=== PATIENT | female | born 1985 | race Caucasian/White ===

== ENCOUNTER 2017-06-07 | Emergency (ER) | payer OTHER ==
--- NOTE | 2017-06-07 15:07 | ER ---
Nurse's Notes [facility] Name: Verna Schwartz Age: 31 yrs Sex: Female : 1985 Arrival Date: 06/07/2017 Time: 12:28 Bed 25 Private MD: Diagnosis: Lesion of ulnar nerve;Myelopathy in diseases classified elsewhere;Radiculopathy, cervical region Presentation: 06/07 12:32 Presenting complaint: Patient states: Reports numbness to left arm for 1 week. Patient aj reports symptoms started with pain in shoulder and back. Transition of care: patient was not received from another setting of care. Onset of symptoms was May 31, 2017. Care prior to arrival: None. 12:32 Method Of Arrival: Ambulatory aj 12:32 Acuity: GISEL 4 aj Triage Assessment: 12:34 General: Appears in no apparent distress. comfortable, Behavior is calm, cooperative, aj appropriate for age. Pain: Complains of pain in left scapular area. Neuro: Level of Consciousness is awake, alert, obeys commands, Oriented to person, place, time, situation. Respiratory: Airway is patent Respiratory effort is even, unlabored, Respiratory pattern is regular, symmetrical. Derm: Skin is intact, is healthy with good turgor, Skin is pink, warm \T\ dry. normal. Musculoskeletal: Reports numbness in left arm. 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 [Active]; - PMHx: 12:34 Anxiety; Arthritis; Bipolar disorder; Degenerative disc disease; DENTURES; Depression; aj Fibromyalgia; GERD; Rheumatoid Arthritis; - PSHx: 12:34 DENTAL SURG; aj - Immunization history:: Adult Immunizations up to date. - Social history:: Smoking status: Patient uses tobacco products, smokes one-half pack cigarettes per day. Screenin:30 Abuse screen: Denies threats or abuse. Denies injuries from another. Nutritional kr2 screening: No deficits noted. Tuberculosis screening: No symptoms or risk factors identified. Fall Risk None identified. Assessment: 13:10 General: Appears in no apparent distress. comfortable, unkempt, well developed, well kr2 nourished, Behavior is calm, cooperative, appropriate for age. Pain: Complains of pain in left arm and left scapular area Pain currently is 7 out of 10 on a pain scale. Quality of pain is described as burning, aching, Pain began gradually, Is continuous, Alleviated by nothing. Aggravated by increased activity, repositioning. 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 Gait is steady, Speech is normal, Facial symmetry appears normal, Pupils are PERRLA, paresthesias in left arm. Cardiovascular: Heart tones S1 S2 present Capillary refill < 3 seconds in bilateral fingers Patient's skin is warm and dry. Respiratory: Airway is patent Respiratory effort is even, unlabored, Respiratory pattern is regular, symmetrical. GI: Abdomen is flat, non-distended. : No signs and/or symptoms were reported regarding the genitourinary system. Denies burning with urination. EENT: Oral mucosa is moist. Derm: Skin is intact, is healthy with good turgor, Skin is pink, warm \T\ dry. Musculoskeletal: Reports weakness in left hand numbness in palmar aspect of left forearm. 14:10 Reassessment: Patient appears in no apparent distress at this time. Patient and/or kr2 family updated on plan of care and expected duration. Pain level reassessed. Patient is alert, oriented x 3, equal unlabored respirations, skin warm/dry/pink. 15:30 Reassessment: Patient appears in no apparent distress at this time. Patient and/or kr2 family updated on plan of care and expected duration. Pain level reassessed. Patient is alert, oriented x 3, equal unlabored respirations, skin warm/dry/pink. Patient states she is comfortable at this time. 16:30 Reassessment: No changes from previously documented assessment. kr2 17:30 Reassessment: No changes from previously documented assessment. Report called to kr2 receiving nurse Connor, at [facility] in the [facility]. Vital Signs: 12:34 BP 114 / 81; Pulse 89; Resp 16; Temp 99.2; Pulse Ox 98% on R/A; Weight 69.4 kg; Height aj 5 ft. 8 in. (172.72 cm); Pain 5/10; 14:00 BP 110 / 76; Pulse 78; Resp 15; Pulse Ox 99% on R/A; kr2 15:39 BP 108 / 76; Pulse 74; Resp 14; Pulse Ox 96% on R/A; kr2 17:00 BP 110 / 82; Pulse 78; Resp 16; Pulse Ox 100% on R/A; kr2 12:34 Body Mass Index 23.26 (69.40 kg, 172.72 cm) ED Course: 12:28 Patient arrived in ED. as 12:33 Triage completed. 12:34 Arm band placed on right wrist. Patient placed in waiting room, Patient notified of wait time. 13:05 Fidel Alanis MD is Attending Physician. 13:30 Patient has correct armband on for positive identification. Bed in low position. Call kr2 light in reach. Side rails up X 1. Pulse ox on. NIBP on. Door closed. Warm blanket given. Head of bed elevated. 15:05 Gt Pollock MD is Referral Physician. 15:07 Sami Hollins MD is Referral Physician. 15:26 Dari Treviño, GAIL is Primary Nurse. kr2 17:45 No provider procedures requiring assistance completed. Patient did not have IV access kr2 during this emergency room visit. Administered Medications: No medications were administered Outcome: 15:06 Discharge ordered by . 16:00 ER care complete, transfer ordered by . 17:45 Transferred by ground EMS to [facility], Transfer form completed. kr2 17:45 Transferred 17:45 Condition: stable 17:45 Instructed on the need for transfer, Demonstrated understanding of instructions. 17:55 Patient left the ED. kr2 Signatures: Chelsy Mckay RN RN Makenzie Peña as Fidel Alanis MD MD Dari Treviño, GAIL RN kr2 Corrections: (The following items were deleted from the chart) [id number] 01:20 04/03 17:30 Reassessment: No changes from previously documented assessment. kr2 kr2
--- NOTE | 2017-06-07 15:07 | EDPHYS ---
Physician Documentation [facility] Name: Verna Schwartz Age: 31 yrs Sex: Female : 1985 Arrival Date: 06/07/2017 Time: 12:28 Bed 25 Private MD: ED Physician Fidel Alanis HPI: 06/07 14:55 This 31 yrs old Female presents to ER via Ambulatory with complaints of gs Numbness Of Arm. 14:55 The patient presents to the emergency department with paresthesias of the left upper gs extremity, that is moderate. Onset: The symptoms/episode began/occurred 1 week(s) ago. Associated signs and symptoms: Pertinent positives: paresthesias, Pertinent negatives: altered mental status. Severity of symptoms: At their worst the symptoms were moderate in the emergency department the symptoms are unchanged. 15:01 Current symptoms: paralysis or paresis, that is mild. The patient has not experienced gs similar symptoms in the past. 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 [Active]; - PMHx: 12:34 Anxiety; Arthritis; Bipolar disorder; Degenerative disc disease; DENTURES; Depression; aj Fibromyalgia; GERD; Rheumatoid Arthritis; - PSHx: 12:34 DENTAL SURG; aj - Immunization history:: Adult Immunizations up to date. - Social history:: Smoking status: Patient uses tobacco products, smokes one-half pack cigarettes per day. ROS: 15:01 All other systems are negative. gs Exam: 15:01 Head/Face: Normocephalic, atraumatic. Eyes: Pupils equal round and reactive to light, gs extra-ocular motions intact. Lids and lashes normal. Conjunctiva and sclera are non-icteric and not injected. Cornea within normal limits. Periorbital areas with no swelling, redness, or edema. ENT: Nares patent. No nasal discharge, no septal abnormalities noted. Tympanic membranes are normal and external auditory canals are clear. Oropharynx with no redness, swelling, or masses, exudates, or evidence of obstruction, uvula midline. Mucous membranes moist. Neck: Trachea midline, no thyromegaly or masses palpated, and no cervical lymphadenopathy. Supple, full range of motion without nuchal rigidity, or vertebral point tenderness. No Meningismus. Chest/axilla: Normal chest wall appearance and motion. Nontender with no deformity. No lesions are appreciated. Cardiovascular: Regular rate and rhythm with a normal S1 and S2. No gallops, murmurs, or rubs. Normal PMI, no JVD. No pulse deficits. Respiratory: Lungs have equal breath sounds bilaterally, clear to auscultation and percussion. No rales, rhonchi or wheezes noted. No increased work of breathing, no retractions or nasal flaring. Abdomen/GI: Soft, non-tender, with normal bowel sounds. No distension or tympany. No guarding or rebound. No evidence of tenderness throughout. Back: No spinal tenderness. No costovertebral tenderness. Full range of motion. Skin: Warm, dry with normal turgor. Normal color with no rashes, no lesions, and no evidence of cellulitis. 15:01 Constitutional: The patient appears alert, awake. 15:01 Musculoskeletal/extremity: ROM: limited active range of motion, in the left hand, Circulation is intact in all extremities. the left wrist and palmar aspect of left forearm decreased sensation. 15:01 Neuro: Motor: strength is 4/5 in the left hand, Sensation: 2 point discrimination is decreased in the left wrist and palmar aspect of left forearm. Vital Signs: 12:34 BP 114 / 81; Pulse 89; Resp 16; Temp 99.2; Pulse Ox 98% on R/A; Weight 69.4 kg; Height aj 5 ft. 8 in. (172.72 cm); Pain 5/10; 14:00 BP 110 / 76; Pulse 78; Resp 15; Pulse Ox 99% on R/A; kr2 15:39 BP 108 / 76; Pulse 74; Resp 14; Pulse Ox 96% on R/A; kr2 17:00 BP 110 / 82; Pulse 78; Resp 16; Pulse Ox 100% on R/A; kr2 12:34 Body Mass Index 23.26 (69.40 kg, 172.72 cm) aj MDM: 13:30 Patient medically screened. 15:01 Data reviewed: vital signs, nurses notes, and as a result, I will discharge patient. 16:07 ED course: hand function is mildly better decrease to sharp touch persists plan gs transfer isidro wants to see in hospital not in office, pt good with plan.. Administered Medications: No medications were administered Disposition: 06/07/17 16:00 Transfer ordered to [facility]. Diagnosis are Lesion of ulnar nerve, Myelopathy in diseases classified elsewhere, Radiculopathy, cervical region. - Reason for transfer: Higher level of care. - Accepting physician is divina. - Condition is Stable. - Problem is new. - Symptoms are unchanged. Signatures: Chelsy Mckay RN Fidel Lai MD MD Dari Treviño RN RN kr2
== END 2017-06-07 17:55 | disposition short-term general hospital (02) ==
CPT/HCPCS: 99285